=== PATIENT | female | born 1985 | race Caucasian/White ===

== ENCOUNTER 2019-08-02 03:55 | Emergency (ER) | payer OTHER ==
[~2019-08-02] VITALS: Ht 172.7 cm; Wt 102.1 kg
--- OUTSIDE RECORDS SUMMARY | 2019-08-02 03:58 | XMS REPORT ---
Author Author [facility] Address Unknown Phone Unavailable Care Team Providers Care Weblogic Administrator Name Role Phone Unavailable Unavailable Problems This patient has no known problems. Allergies, Adverse Reactions, Alerts This patient has no known allergies or adverse reactions. Medications This patient has no known medications. Encounters Start Date/Time End Date/Time Encounter Type Admission Type Attending [facility] Care Department Encounter ID 2018-09-20 19:23:27 Inpatient [id number] 2018-10-12 18:22:00 2018-10-12 18:22:00 Emergency E [facility]SE [id number] 2018-09-29 07:21:00 2018-09-29 05:44:00 Inpatient E [facility]SE [facility]SE [id number] 2018-09-20 18:54:00 2018-09-20 18:54:00 Emergency E [facility]SE [facility]SE [id number]
[2019-08-02] MEDS ORDERED: ACETAMINOPHEN 325 MG TAB PO ONE (04:15)
[2019-08-02 04:54] LABS: BILIRUBIN,URINE NEGATIVE (NEGATIVE); COLOR,URINE YELLOW (YELLOW); KETONES,URINE NEGATIVE (NEGATIVE); LEUKOCYTE ESTERASE ,URINE NEGATIVE (NEGATIVE); NITRITE,URINE NEGATIVE (NEGATIVE); PREGNANCY TEST, URINE NEGATIVE (NEGATIVE); PROTEIN,URINE DIPSTICK 1+ (NEGATIVE); URINE UROBILINOGEN 0.2 mg/dL (0.2 - 1)
[2019-08-02 05:01] LABS: STREPTOCOCCUS GRP A ANTIGEN NEGATIVE (NEGATIVE)
[2019-08-02 05:05] LABS: INFLUENZAE A&B ANTIGEN (RAPID) NEGATIVE (NEGATIVE)
[2019-08-02] MEDS ORDERED: IBUPROFEN 600 MG TAB PO STA (05:48)
--- NOTE | 2019-08-02 05:59 | Diagnostic Imaging Report ---
EXAMINATION: CHEST 2 VIEWS INDICATION: Fever ^cough ^[id number] ^[id number] COMPARISON: None FINDINGS: PA and lateral views TUBES and LINES: None. LUNGS: Left upper lobe and lingular infiltrates. No airspace opacities in the right lung. PLEURA: No pleural effusion or pneumothorax. HEART AND MEDIASTINUM: The cardiomediastinal silhouette is unremarkable.. BONES AND SOFT TISSUES: No focal osseous lesions. Soft tissues are unremarkable. UPPER ABDOMEN: Unremarkable. IMPRESSION: Left pulmonary infiltrates consistent with pneumonia. Signed by: Dr. Eloise Richard MD on 08/02/2019 5:56 AM
[2019-08-02 06:03] VITALS: BP 115/74
[2019-08-02 06:40] LABS: AMORPHOUS SEDIMENT,URINE MANY (FEW); CLARITY,URINE CLOUDY (CLEAR); EPITHELIAL CELLS,URINE RARE /LPF; RBC,URINE 0-5 /HPF (0-5)
[2019-08-02 06:41] LABS: BACTERIA,URINE FEW /HPF
[2019-08-02 06:42] LABS: WBC,URINE (MAN) 0-5 /HPF (0-5)
== END 2019-08-02 06:12 | disposition home or self-care (01) ==
LOC: ER 03:55
DX: R06.00 Dyspnea, unspecified (principal); R05 Cough; J15.9 Unspecified bacterial pneumonia
CPT/HCPCS: 71046; 81001; 81025; 83518; 87070; 87400; 99283